=== PATIENT | male | born 1945 ===

== ENCOUNTER → 2018-11-05 | Outpatient (REF) | payer MEDICARE ==
[2018-11-05 11:20] LABS: PLATELET COUNT, AUTOMATED 203 K/uL (150-450)
== END ==
LOC: ZZPREMIUM 10:44
PROVIDERS: ATTEND Internal Medicine Gastroenterology
DX: E46 Unspecified protein-calorie malnutrition (principal); C18.8 Malignant neoplasm of overlapping sites of colon
CPT/HCPCS: 82040; 82247; 82310; 82374; 82435; 82565; 82947; 83735; 84075; 84100; 84132; 84155; 84295; 84450; 84460; 84478; 84520; 85025

== ENCOUNTER → 2018-11-09 | Outpatient (REF) | payer MEDICARE | LOC: ZZIMHLAB 18:16 | PROVIDERS: ATTEND Family Medicine | DX: R50.9 Fever, unspecified (principal) | CPT/HCPCS: 81001; 87088 ==

== ENCOUNTER → 2018-11-12 | Outpatient (REF) | payer MEDICARE ==
[2018-11-12 12:29] LABS: PLATELET COUNT, AUTOMATED 160 K/uL (150-450)
== END ==
LOC: ZZPREMIUM 12:12
PROVIDERS: ATTEND Internal Medicine Gastroenterology
DX: E46 Unspecified protein-calorie malnutrition (principal); C18.8 Malignant neoplasm of overlapping sites of colon
CPT/HCPCS: 82040; 82247; 82310; 82374; 82435; 82565; 82947; 83735; 84075; 84100; 84132; 84155; 84295; 84450; 84460; 84478; 84520; 85025